=== PATIENT | female | born 1965 | race Caucasian/White ===

== ENCOUNTER 2021-07-03 21:46 | Inpatient (IN) | payer BC ==
[~2021-07-03] VITALS: Ht 162.6 cm; Wt 71.2 kg
[2021-07-03 22:24] VITALS: BP_SYST 159
[2021-07-03] MEDS ORDERED: MORPHINE 4 MG INJ. 4 MG/ML VIAL IM ONE (22:45)
[2021-07-03] MEDS ORDERED: MAGNESIUM SULFATE 50 ML IV ONE (23:15)
[2021-07-03] MEDS ORDERED: CYCLOBENZAPRINE HCL 10 MG TABLET (FLEXERIL) PO ONE (23:15)
[2021-07-04 00:27] LABS: BASOPHILS % (AUTO) 0.4 % (0.0-2.0); HEMATOCRIT 42.3 % (36-48); HEMOGLOBIN 14.5 g/dL (12.0-16.0); LYMPHOCYTES # (AUTO) 1.1 K/uL (1.0-5.5); LYMPHOCYTES % (AUTO) 13.5 % (20.5-51.5); MEAN CORPUSCULAR HEMOGLOBIN 31 pg (27-31); MEAN CORPUSCULAR HGB CONC 34 % (32-36); MEAN CORPUSCULAR VOLUME 92 fL (79.0-98.0); MONOCYTES # (AUTO) 0.1 K/uL (0.0-1.0); MONOCYTES % (AUTO) 1.7 % (1.7-9.3); NEUTROPHILS # (AUTO) 6.6 K/uL (1.8-7.7); NEUTROPHILS % (AUTO) 84.4 % (40.0-70.0); PLATELET COUNT (AUTO) 253 K/uL (130-430); WHITE BLOOD COUNT (AUTO) 7.8 K/uL (4.8-10.8)
[2021-07-04 00:41] LABS: CALCIUM 9.3 mg/dL (8.4-11.0); CREATININE 0.9 mg/dL (0.55-1.30); POTASSIUM 4.4 mmol/L (3.5-5.1)
[2021-07-04 00:45] LABS: BILIRUBIN,URINE NEGATIVE (NEGATIVE); BLOOD, URINE 2+ (NEGATIVE); CLARITY/URINE CLEAR (CLEAR); COLOR,URINE YELLOW (YELLOW); GLUCOSE,URINE NEGATIVE (NEGATIVE); KETONES,URINE 1+ (NEGATIVE); LEUKOCYTE ESTERASE ,URINE TRACE (NEGATIVE); NITRITE, URINE NEGATIVE (NEGATIVE); PH,URINE 5.5 (5.0-8.0); PROTEIN URINE 1+ (NEGATIVE); UROBILINOGEN,URINE 0.2 (0.2-1.0)
[2021-07-04 01:00] LABS: ALBUMIN 4.3 g/dL (3.4-4.8); TOTAL BILIRUBIN 0.3 mg/dL (0.0-1.0)
[2021-07-04] MEDS ORDERED: NACL 0.9% 1,000 ML IV ONE (01:00)
[2021-07-04] MEDS ORDERED: KETOROLAC TROMETHAMINE 15 MG VIAL IVP ONE (01:00)
[2021-07-04 02:09] LABS: BACTERIA,URINE FEW /HPF (None Seen); MUCUS,URINE None Seen /LPF (None Seen)
[2021-07-04] MEDS ORDERED: fentaNYL CITRATE/PF 100 MCG/2 ML AMP IVP ONE (02:30)
[2021-07-04] MEDS ORDERED: LORazepam 2 MG/ML VIAL IVP ONE (03:00)
[2021-07-04 09:20] VITALS: BP_SYST 136
[2021-07-04] MEDS ORDERED: NALOXONE HCL 0.4 MG/ML AMP (NARCAN) IVP PRN ×3 (10:45→13:00)
[2021-07-04] MEDS ORDERED: HYDROmorphone 1 MG/ML INJ. CARTRIDGE IVP ONE ×2 (11:00→13:00)
[2021-07-04 12:43] VITALS: BP_SYST 113
[2021-07-04] MEDS: ALPRAZolam 0.25 MG TABLET PO PRN (12:49)
[2021-07-04] MEDS ORDERED: GADOTERATE MEGLUMINE 7.5 MMOL/15 ML VIAL IV ONE (13:59)
[2021-07-04 16:42] VITALS: BP_SYST 115
[2021-07-04 20:00] VITALS: BP_SYST 103
[2021-07-04] MEDS: HYDROmorphone 1 MG/ML INJ. CARTRIDGE IVP PRN (20:44)
[2021-07-04] MEDS: ENOXAPARIN SODIUM 40 MG/0.4 ML SYRINGE SUBCUT SCH (20:58)
[2021-07-05 00:35] VITALS: BP_SYST 96
[2021-07-05] MEDS: HYDROmorphone 1 MG/ML INJ. CARTRIDGE IVP PRN ×3 (05:36→21:47)
[2021-07-05] MEDS: KETOROLAC TROMETHAMINE 15 MG VIAL IVP PRN ×2 (08:15→14:47)
[2021-07-05 08:30] VITALS: BP_SYST 108
[2021-07-05] MEDS: ALPRAZolam 0.25 MG TABLET PO PRN (10:56)
[2021-07-05 16:00] VITALS: BP_SYST 105
[2021-07-05] MEDS ORDERED: LIDOCAINE TOPICAL OINT 5%, 35 GM TP SCH (19:30)
[2021-07-05 20:00] VITALS: BP_SYST 123
[2021-07-05] MEDS: ENOXAPARIN SODIUM 40 MG/0.4 ML SYRINGE SUBCUT SCH (21:45)
[2021-07-06 00:45] VITALS: BP_SYST 97
[2021-07-06] MEDS: HYDROmorphone 1 MG/ML INJ. CARTRIDGE IVP PRN ×3 (06:37→16:34)
[2021-07-06 08:45] VITALS: BP_SYST 141
[2021-07-06 11:42] VITALS: BP_SYST 125
[2021-07-06] MEDS ORDERED: ONDANSETRON HCL 4 MG/2 ML VIAL IVP PRN ×2 (13:30→14:45)
[2021-07-06] MEDS ORDERED: NALOXONE HCL 0.4 MG/ML AMP (NARCAN) IVP PRN ×3 (13:30→14:45)
[2021-07-06] MEDS ORDERED: HYDROmorphone 2 MG/ML VIAL IVP PRN (13:30)
[2021-07-06] MEDS ORDERED: HYDROmorphone 1 MG/ML INJ. CARTRIDGE IVP PRN ×2 (13:30)
[2021-07-06 13:33] LABS: PROTHROMBIN TIME 10.5 SECS (9.5-12.5)
[2021-07-06] MEDS ORDERED: OXYCODONE/ACETAMINOPHEN 5-325 TABLET PO PRN ×2 (14:45)
[2021-07-06] MEDS ORDERED: HYDROcodone/ACETAMIN 5-325 MG TAB (NORCO/ VICODIN) PO PRN (14:45)
[2021-07-06] MEDS: D5LR 1,000 ML IV SCH (14:45)
[2021-07-06] MEDS ORDERED: DESFLURANE 15 MIN GAS INH ONE (14:55)
[2021-07-06] MEDS ORDERED: SUGAMMADEX SODIUM 200 MG/2 ML VIAL IV ONE (14:55)
[2021-07-06] MEDS ORDERED: CEFAZOLIN 2 GM IVPB PREMIX 50 ML IV ONE (14:55)
[2021-07-06] MEDS ORDERED: ONDANSETRON HCL 4 MG/2 ML VIAL ONE (14:55)
[2021-07-06] MEDS ORDERED: BUPIVACAINE /EPINEPHRINE/PF 0.5% 30 ML VIAL INJ ONE (14:55)
[2021-07-06] MEDS ORDERED: DEXAMETHASONE SOD PHOSPHATE 4 MG/ML VIAL ONE (14:55)
[2021-07-06] MEDS ORDERED: METOCLOPRAMIDE HCL 10 MG/2 ML VIAL ONE (14:55)
[2021-07-06] MEDS ORDERED: KETOROLAC TROMETHAMINE 30 MG VIAL ONE (14:55)
[2021-07-06] MEDS ORDERED: NS IRRIG SOLN 1000 ML IR ONE (14:55)
[2021-07-06] MEDS ORDERED: PROPOFOL 200MG/ 20ML VIAL (DIPRIVAN) IV ONE (14:55)
[2021-07-06] MEDS ORDERED: HYDROmorphone 2 MG/ML VIAL ONE (14:55)
[2021-07-06] MEDS ORDERED: SUCCINYLCHOLINE CHLORIDE 20 MG/ML(QUELICIN) ONE (14:55)
[2021-07-06] MEDS ORDERED: fentaNYL CITRATE/PF 100 MCG/2 ML AMP ONE (14:55)
[2021-07-06] MEDS ORDERED: NS 1000 ML IV.SOLN IV ONE (14:55)
[2021-07-06] MEDS ORDERED: LR 1,000 ML IV.SOLN IV ONE (14:55)
[2021-07-06] MEDS ORDERED: ROCURONIUM BROMIDE 10 MG/ML (ZEMURON) ONE (14:55)
[2021-07-06] MEDS: CYCLOBENZAPRINE HCL 10 MG TABLET (FLEXERIL) PO SCH ×2 (15:00→23:06)
[2021-07-06 16:15] VITALS: BP_SYST 143
[2021-07-06] MEDS: KETOROLAC TROMETHAMINE 15 MG VIAL IVP PRN (16:34)
[2021-07-06] MEDS: SIMETHICONE 80 MG TAB.CHEW PO SCH ×2 (17:12→23:07)
[2021-07-06 19:00] VITALS: BP_SYST 101
[2021-07-06 20:00] VITALS: BP_SYST 101
[2021-07-06] MEDS: SENNOSIDES/DOCUSATE SODIUM 1 TAB TABLET(SENOKOT-S) PO SCH (23:07)
[2021-07-06] MEDS: ENOXAPARIN SODIUM 40 MG/0.4 ML SYRINGE SUBCUT SCH (23:08)
[2021-07-07 00:27] VITALS: BP_SYST 115
[2021-07-07] MEDS: D5LR 1,000 ML IV SCH ×3 (00:45→20:59)
[2021-07-07] MEDS: HYDROmorphone 1 MG/ML INJ. CARTRIDGE IVP PRN ×2 (05:48→21:19)
[2021-07-07] MEDS: CYCLOBENZAPRINE HCL 10 MG TABLET (FLEXERIL) PO SCH ×3 (09:19→20:58)
[2021-07-07] MEDS: SIMETHICONE 80 MG TAB.CHEW PO SCH ×4 (09:19→20:58)
[2021-07-07 09:58] VITALS: BP_SYST 118
[2021-07-07 14:03] VITALS: BP_SYST 112
[2021-07-07 17:59] VITALS: BP_SYST 118
[2021-07-07 20:00] VITALS: BP_SYST 100
[2021-07-07] MEDS: SENNOSIDES/DOCUSATE SODIUM 1 TAB TABLET(SENOKOT-S) PO SCH (20:58)
[2021-07-07] MEDS: ENOXAPARIN SODIUM 40 MG/0.4 ML SYRINGE SUBCUT SCH (21:00)
[2021-07-08 00:31] VITALS: BP_SYST 132
[2021-07-08] MEDS: D5LR 1,000 ML IV SCH ×2 (06:15→16:45)
[2021-07-08 08:08] VITALS: BP_SYST 130
[2021-07-08 08:14] LABS: BASOPHILS % (AUTO) 0.8 % (0.0-2.0); EOSINOPHILS # (AUTO) 0.1 K/uL (0.0-0.4); EOSINOPHILS % (AUTO) 1.6 % (0.0-4.0); HEMATOCRIT 41.2 % (36-48); HEMOGLOBIN 13.8 g/dL (12.0-16.0); LYMPHOCYTES # (AUTO) 2.4 K/uL (1.0-5.5); LYMPHOCYTES % (AUTO) 39.5 % (20.5-51.5); MEAN CORPUSCULAR HEMOGLOBIN 31 pg (27-31); MEAN CORPUSCULAR HGB CONC 33 % (32-36); MEAN CORPUSCULAR VOLUME 94 fL (79.0-98.0); MONOCYTES # (AUTO) 0.5 K/uL (0.0-1.0); MONOCYTES % (AUTO) 7.8 % (1.7-9.3); NEUTROPHILS # (AUTO) 3.1 K/uL (1.8-7.7); NEUTROPHILS % (AUTO) 50.3 % (40.0-70.0); PLATELET COUNT (AUTO) 211 K/uL (130-430); WHITE BLOOD COUNT (AUTO) 6.2 K/uL (4.8-10.8)
[2021-07-08] MEDS: SIMETHICONE 80 MG TAB.CHEW PO SCH ×3 (08:28→17:19)
[2021-07-08] MEDS: CYCLOBENZAPRINE HCL 10 MG TABLET (FLEXERIL) PO SCH ×2 (08:28→15:22)
[2021-07-08 08:36] LABS: CREATININE 0.82 mg/dL (0.55-1.30); POTASSIUM 4.5 mmol/L (3.5-5.1)
[2021-07-08] MEDS ORDERED: HYDR-3917 PO (17:58)
[2021-07-08] MEDS ORDERED: CYCL10TA24 PO (18:00)
[2021-07-08] MEDS ORDERED: DOCU-144 PO (18:00)
[2021-07-08 18:09] VITALS: BP_SYST 134
[2021-07-08 18:10] VITALS: BP_SYST 134
== END 2021-07-08 20:19 | disposition home health service (06) | DRG 743 ==
LOC: SED 21:46 → MERGE 07-04 05:28 → SMU 07-04 05:28
PROVIDERS: ADMIT Family Medicine; ATTEND Family Medicine
PROC: 0UB50ZZ Excision of Right Fallopian Tube, Open Approach (ICD-10-PCS; 2021-07-06)
PROC: 0UB00ZZ Excision of Right Ovary, Open Approach (ICD-10-PCS; principal; 2021-07-06 13:19)
DX: N83.291 Other ovarian cyst, right side (principal); E78.00 Pure hypercholesterolemia, unspecified; E78.5 Hyperlipidemia, unspecified; N85.4 Malposition of uterus; N95.9 Unspecified menopausal and perimenopausal disorder; Z20.822 Contact with and (suspected) exposure to COVID-19; Z91.041 Radiographic dye allergy status
CPT/HCPCS: 36415; 71045; 72148; 72170-TC; 72197; 73552; 76376; 76830-TC; 76857; 80048; 80053; 81000; 82550; 83735; 85025; 85610-TC; 85730-TC; 86304; 86886; 86900; 86901; 88108; 88305; 93005; 96372; 96374; 96375; 97163-GP; 99285; A9575; C1727; C1782; J0330; J0690; J1100; J1170; J1650; J1885; J2060; J2270; J2405; J2704; J2765; J3010; J3490; J7030; J7120